=== PATIENT | male | born 1965 | race Caucasian/White ===

== ENCOUNTER 2018-10-09 08:57 | Outpatient (CLI) | payer MEDICARE ==
--- NOTE | 2018-10-09 10:56 | RAD ---
LUMBAR SPINE THREE VIEWS: HISTORY: Lumbar degenerative disk disease. COMPARISON: 05/25/2013 FINDINGS: This exam is a standing flexion, extension, and neutral lateral exam. Extensive disk osteophytosis. Postoperative changes at the L4-L5 disk level. No significant abnormal translation between flexion and extension. IMPRESSION: 1. Postoperative changes at L4-L5. 2. Extensive spondylosis. 3. No abnormal translation. POS: OFF
== END 2018-10-09 08:58 | disposition home or self-care (01) ==
LOC: RAD 08:57
PROVIDERS: ATTEND Nurse Practitioner Family
DX: M51.36 Other intervertebral disc degeneration, lumbar region (principal); M47.816 Spondylosis without myelopathy or radiculopathy, lumbar region; Z98.890 Other specified postprocedural states
CPT/HCPCS: 72100

== ENCOUNTER 2018-10-26 11:41 | Day surgery (SDC) | payer MEDICARE ==
[2018-10-25 08:31] VITALS: BMI 29.1
--- NOTE | 2018-10-26 13:53 | RAD ---
XR Lumbar Spine 2 Or 3 View History: Pre-MRI Comparison: Radiograph October 09, 2018 Findings: No acute fracture or malalignment. Interbody fusion at L4-5 with satisfactory location of t he discectomy cage. Multiple bridging osteophytes. Mild narrowing of the L5-S1 posterior disc space. Extensive hypertrophic osteophyte formation throughout the lumbar spine. Likely prior laminectomy changes L4. Severe narrowing of L3-4 and L5-S1 interspinous space with corti jonathan sclerosis and remodeling. Impression: Unchanged exam. No acute fracture or malalignment.
--- NOTE | 2018-10-26 18:18 | MRI ---
MRI lumbar spine noncontrast: HISTORY: Low back pain, x2 years. Previous lumbar fusion. Hardware removal. COMPARISON: 11/14/2009 FINDINGS: Appropriate T1 marrow signal intensity of the lumbar vertebrae. Lumbar spine vertebral body height is maintained. No fracture. No significant STIR hyperintensity to suggest vertebral body edema. Type II Modic changes along the inferior endplate of L4-5. Conus medullaris terminates at the inferior aspect of T12 level. Appropriate signal intensity of the visualized paraspinal muscles. T2 hyperintensities in the left and right renal cortex likely representing bilateral cortical cysts . Largest emanates from the anterior midpole the right kidney measuring 3.0 x 3.1 cm T12-L1:Nonspecific fluid in the right half of the disc space. No significant loss of disc space heigh t. No significant central canal stenosis or neural foraminal narrowing. L1-L2:Adequate disc hydration. No significant central canal stenosis. Bilaterally, neural foramina ar e patent. L2-L3:Adequate disc hydration. No significant posterior disc abnormality. Mild ligament flavum thicke philip and facet hypertrophy. Mild central canal stenosis. Mild bilateral foraminal narrowing. L3-L4:Adequate disc hydration. No significant posterior disc abnormality. No significant central betsy l stenosis. Right neural foramen is mildly narrowed. Left neural foramen is patent. L4-L5:Disc prosthesis. Posterior decompressive laminectomy change. No significant central canal steno sis. Moderate to severe right and left foraminal narrowing. L5-S1:Mild loss of disc space height. No significant posterior disc abnormality. No significant canal stenosis. Bilateral facet hypertrophy. Moderate to severe right and moderate left foraminal narrowing. IMPRESSION: 1. Postoperative changes lumbar spine as above 2. Degenerative changes lumbar spine as detailed above. Moderate to severe right foraminal narrowing at L5-S1. Moderate left foraminal narrowing at L5-S1. 3. Moderate to severe right and left foraminal narrowing at L4-L5. Transcribed Date/Time: 10/26/2018 8:15 PM
== END 2018-10-26 17:25 | disposition home or self-care (01) ==
LOC: SDC/OP 11:41
PROVIDERS: ATTEND Nurse Practitioner Family
DX: M51.36 Other intervertebral disc degeneration, lumbar region (principal)
CPT/HCPCS: 72100; 72148; 93005; 93010

== ENCOUNTER 2020-04-16 13:13 | Emergency (ER) | payer MEDICARE ==
[2020-04-16 14:39] LABS: #Eosinphils 0.2 thou/uL (0.0-0.7); #Lymphocytes 1.5 thou/uL (1.20-3.40); #Neutrophils 5.1 thou/uL (1.40-6.50); %Basophils 0.2 % (0.0-1.0); %Eosinophils 2.1 % (0.0-10.0); %Lymphocytes 18.7 % (21.0-51.0); %Monocytes 12.9 % (0.0-10.0); %Neutrophils 66.1 % (42.0-75.0); Hemoglobin 14.2 g/dL (14.0-18.0); Mean Corpuscular HGB CONC 33.1 g/dL (32.0-36.0); Mean Corpuscular Hemoglobin 29.6 pg (27.0-31.0); Mean Corpuscular Volume 89.7 fL (78.0-98.0); Mean Platelet Volume 6.2 fL (7.4-10.4); Platelet Count 312 thou/uL (130-400); Red Blood Cell (RBC) Count 4.78 mill/uL (4.70-6.10); White Blood Cell (WBC) Count 7.8 thou/uL (4.8-10.8)
[2020-04-16 15:09] LABS: ALT (SGPT) 32 U/L (8-55); AST (SGOT) 19 U/L (5-34); Albumin 4.4 g/dL (3.5-5.0); Alkaline Phosphatase 104 U/L (40-110); Anion Gap 14 mmol/L (10-20); BUN (Urea Nitrogen) 10 mg/dL (8.4-25.7); Bilirubin, Total 0.8 mg/dL (0.2-1.2); Calc. Creatinine Clearance 0 mL/min (70-130); Calcium 9.2 mg/dL (7.8-10.44); Carbon Dioxide 24 mmol/L (22-29); Chloride 104 mmol/L (98-107); Globulin 3.3 g/dL (2.4-3.5); Glucose 216 mg/dL (70-105); Potassium 4.1 mmol/L (3.5-5.1); Protein, Total 7.7 g/dL (6.0-8.3); Sodium 138 mmol/L (136-145)
[2020-04-16 16:26] LABS: Bacteria/HPF None Seen HPF (None Seen); Bilirubin Negative (Negative); Blood, Urine Negative (Negative); Clarity Clear (Clear); Glucose, Urine (Dipstick) 100 mg/dL (Negative); Ketone, Urine Negative (Negative); Leukocyte Negative Leu/uL (Negative); Nitrite Negative (Negative); Protein, Urine (Dipstick) 50 mg/dL (Neg-Trace); RBC/HPF 0-3 HPF (0-3); Squamous Epithelial None Seen HPF (0-3); Urobilinogen Normal mg/dL (Less than 2); pH, Urine 5.5 (5.0-9.0)
[2020-04-16] MEDS ORDERED: Ketorolac Tromethamine 30 MG/ML VIAL ONE (16:37)
[2020-04-16] MEDS ORDERED: Acetaminophen 500 MG TAB ONE (16:37)
--- NOTE | 2020-04-16 16:44 | RAD ---
EXAM: XR Lumbar Spine 2 Or 3 View PROVIDED CLINICAL HISTORY: Low back pain. History of L5-S1 lumbar anterior and posterior fusion. COMPARISON: 02/13/2020 FINDINGS: Again noted are postoperative changes at the lumbosacral junction related to anterior fusion with int ervertebral disc device again seen. Single posterior fusion screw overlies the right-sided facet at this level. Again, on the basis of 5 lumbar type vertebral bodies, there is an intervertebral disc de vice at the L4-5 level. 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 Scattered osteophytes are seen throughout the lumbar spine. No fracture or subluxation is identified. Slight left convex curvature l umbar spine is again present. Surgical clips overlie the left hemipelvis. IMPRESSION: Stable degenerative and postoperative changes lumbar spine.
== END 2020-04-16 18:15 | disposition home or self-care (01) ==
LOC: ERS 13:13
DX: G89.18 Other acute postprocedural pain (principal); M54.5 Low back pain; E11.9 Type 2 diabetes mellitus without complications; E78.2 Mixed hyperlipidemia; I10 Essential (primary) hypertension; M10.9 Gout, unspecified; Z79.899 Other long term (current) drug therapy
CPT/HCPCS: 36415; 72100; 80053; 81003; 81015; 85025; 96374; J1885

== ENCOUNTER 2021-08-26 07:27 | Outpatient (CLI) | payer MEDICARE ==
[2021-08-26 09:07] LABS: #Basophils 0.1 10x3/uL (0.0-0.2); #Eosinphils 0.2 10x3/uL (0.0-0.5); #Neutrophils 4.9 10x3/uL (1.5-8.4); %Basophils 0.6 % (0.0-2.0); %Eosinophils 2.6 % (0.0-6.0); %Lymphocytes 24.7 % (18.0-47.0); %Monocytes 12.3 % (0.0-10.0); %Neutrophils 59.4 % (40.0-75.0); Mean Corpuscular HGB CONC 34.2 g/dL (32.0-36.0); Mean Corpuscular Hemoglobin 29.7 pg (27.0-33.0); Mean Corpuscular Volume 86.7 fl (81.2-95.1); Mean Platelet Volume 8.7 fl (7.4-10.4); Platelet Count 329 10x3/uL (150-450); RBC Distribution Width 13.4 % (11.5-14.5); Red Blood Cell (RBC) Count 4.72 10x6/uL (4.32-5.72); White Blood Cell (WBC) Count 8.2 10x3/uL (3.5-10.5)
[2021-08-26 09:25] LABS: Anion Gap 15 mmol/L (10-20); BUN (Urea Nitrogen) 12 mg/dL (8.4-25.7); Calc. Creatinine Clearance 0 mL/min (70-130); Calcium 9.2 mg/dL (7.8-10.44); Carbon Dioxide 24 mmol/L (22-29); Chloride 103 mmol/L (98-107); Glucose 213 mg/dL (70-105); Potassium 4.1 mmol/L (3.5-5.1); Sodium 138 mmol/L (136-145)
[2021-08-26 16:02] LABS: SARS-CoV-2 PCR by NAA Not Detected (NotDetected)
== END 2021-08-26 07:28 | disposition home or self-care (01) ==
LOC: LABBT 07:27
PROVIDERS: ATTEND Orthopaedic Surgery Hand Surgery
DX: Z01.818 Encounter for other preprocedural examination (principal); Z20.822 Contact with and (suspected) exposure to COVID-19
CPT/HCPCS: 80048; 85025; 93005; U0003; U0005; 93010

== ENCOUNTER 2021-08-31 07:19 | Day surgery (SDC) | payer MEDICARE ==
[2021-08-30 08:59] VITALS: BMI 30.5
[2021-08-31] MEDS ORDERED: Bacitracin Zinc Ointment 30 gm TUBE ONE (08:54)
[2021-08-31] MEDS ORDERED: Neomycin-Polymyxin 1 ML AMP ONE (08:54)
[2021-08-31] MEDS ORDERED: Bupivacaine PF 0.5% 30 ML VIAL ONE (08:54)
[2021-08-31] MEDS ORDERED: Sodium Chloride 0.9% 100 ML ONE (09:21)
[2021-08-31] MEDS ORDERED: CEFAZOLIN 2 GM VIAL ONE (09:21)
[2021-08-31] MEDS ORDERED: PHENYLEPHRINE-NS 100 MCG/ML 10 ML SYRINGE ONE (09:28)
[2021-08-31] MEDS ORDERED: PROPOFOL 200 MG/20 ML VIAL ONE (09:28)
[2021-08-31] MEDS ORDERED: Ondansetron PF 4 MG/2 ML Vial ONE (09:28)
[2021-08-31] MEDS ORDERED: ePHEDrine 50 MG/ML VIAL ONE (09:28)
[2021-08-31] MEDS ORDERED: Lidocaine 1% PF 5 ML VIAL ONE (09:28)
[2021-08-31] MEDS ORDERED: fentaNYL Citrate/PF 100 MCG/2 ML SYRINGE ONE (09:49)
[2021-08-31] MEDS ORDERED: Ketorolac Tromethamine 30 MG/ML VIAL ONE (10:51)
[2021-08-31] MEDS ORDERED: HYDROcodone/Acetaminophen 5/325 mg Tablet ONE (11:47)
== END 2021-08-31 12:25 | disposition home or self-care (01) ==
LOC: SDC 07:19
PROVIDERS: ATTEND Orthopaedic Surgery Hand Surgery
PROC: 0PBN0ZZ Excision of Left Carpal, Open Approach (ICD-10-PCS; principal; 2021-08-31)
DX: M25.732 Osteophyte, left wrist (principal); M1A.9XX0 Chronic gout, unspecified, without tophus (tophi); M19.131 Post-traumatic osteoarthritis, right wrist; M19.132 Post-traumatic osteoarthritis, left wrist; I10 Essential (primary) hypertension; G89.29 Other chronic pain; M54.9 Dorsalgia, unspecified; E78.5 Hyperlipidemia, unspecified; I42.8 Other cardiomyopathies; Z79.899 Other long term (current) drug therapy
CPT/HCPCS: 76000; 88307; 88311; J1885; J2405; J2704; J3490; S0020

== ENCOUNTER 2025-02-24 10:15 | Day surgery (SDC) | payer OTHER, MEDICARE ==
[2025-02-18 12:35] VITALS: BMI 28.6
[2025-02-24 11:55] LABS: #Basophils Less than 0.03 10x3/uL (0.0-0.2); #Eosinophils 0.04 10x3/uL (0.0-0.7); #Monocytes 0.98 10x3/uL (0.11-0.59); #Neutrophils 6.10 10x3/uL (1.40-6.50); %Basophils 0.2 % (0.0-1.0); %Eosinophils 0.5 % (0.0-10.0); %Lymphocytes 17.0 % (21.0-51.0); %Monocytes 11.4 % (0.0-10.0); %Neutrophils 70.7 % (42.0-75.0); Hematocrit 46.2 % (42.0-52.0); Hemoglobin 15.2 g/dL (14.0-18.0); Mean Corpuscular Hemoglobin 29.5 pg (27.0-31.0); Mean Corpuscular Volume 89.5 fL (78.0-98.0); Platelet Count 376 10x3/uL (130-400); Red Blood Cell (RBC) Count 5.16 mill/uL (4.70-6.10); White Blood Cell (WBC) Count 8.63 10x3/uL (4.8-10.8)
[2025-02-24 12:13] LABS: Anion Gap 11 mmol/L (10-20); BUN (Urea Nitrogen) 11 mg/dL (8.4-25.7); Calc. Creatinine Clearance 172 mL/min (70-130); Calcium 9.9 mg/dL (7.8-10.44); Carbon Dioxide 26 mmol/L (23-31); Chloride 108 mmol/L (98-107); Glucose 111 mg/dL (80-115); Potassium 3.9 mmol/L (3.5-5.1); Sodium 141 mmol/L (136-145)
[2025-02-24] MEDS ORDERED: Lidocaine 1% PF 5 ML VIAL ONE (13:25)
[2025-02-24] MEDS ORDERED: Ondansetron PF 4 MG/2 ML Vial ONE (13:25)
[2025-02-24] MEDS ORDERED: PROPOFOL 200 MG/20 ML VIAL ONE (13:25)
== END 2025-02-24 15:25 | disposition home or self-care (01) ==
LOC: MRI 10:15
PROVIDERS: ATTEND Orthopaedic Surgery
DX: M54.12 Radiculopathy, cervical region (principal); M48.00 Spinal stenosis, site unspecified; M86.9 Osteomyelitis, unspecified; I10 Essential (primary) hypertension; I42.9 Cardiomyopathy, unspecified; E11.9 Type 2 diabetes mellitus without complications; E78.00 Pure hypercholesterolemia, unspecified; Z90.89 Acquired absence of other organs; Z79.84 Long term (current) use of oral hypoglycemic drugs; Z79.899 Other long term (current) drug therapy
CPT/HCPCS: 72141; 80048; 85025